=== PATIENT | female | born 1990 | race Caucasian/White ===

== ENCOUNTER 2017-08-10 14:11 | Emergency (ER) | payer BC ==
[2017-08-10 14:30] VITALS: BP 121/81
--- NOTE | 2017-08-10 14:55 | PHYS DOC ---
Past Medical History Past Medical History: No Pertinent History Past Surgical History: Other Additional Past Surgical Histo: Partial Pancreas Removal Alcohol Use: None Drug Use: None Adult General Chief Complaint Chief Complaint: EARACHE/EAR PAIN [facility] HPI Patient is a 26 year old female presents to the emergency department stating that she was seen at [facility] a week ago for right ear pain and was told everything look good. Patient states she was then referred to urgent care if she continued to have discomfort. Patient states she went to urgent care and was placed on amoxicllin for possible cellulitis. Patient states they had also mentioned to her that she may have shingles. However patient is having pain around the outer ear, and along the mastoid bone, she also has pain along the the right upper jaw. All of these areas are red and tender. No rash noted. Review of Systems Review of Systems Constitutional: Denies fever or chills [] Eyes: Denies change in visual acuity, redness, or eye pain [] HENT: Denies nasal congestion or sore throat. Pain to the right ear and right upper jaw line Respiratory: Denies cough or shortness of breath [] Cardiovascular: No additional information not addressed in HPI [] GI: Denies abdominal pain, nausea, vomiting, bloody stools or diarrhea [] : Denies dysuria or hematuria [] Musculoskeletal: Denies back pain or joint pain [] Integument: Denies rash or skin lesions [] Neurologic: Denies headache, focal weakness or sensory changes [] Endocrine: Denies polyuria or polydipsia [] Allergies Allergies Allergies Coded Allergies Type Severity Reaction Last Updated Verified No Known Drug Allergies 08/10/17 No Physical Exam Physical Exam Constitutional: Well developed, well nourished, no acute distress, non-toxic appearance. [] HENT: Normocephalic, atraumatic, bilateral external ears normal, oropharynx moist, no oral exudates, nose normal. Bilateral TM normal. Patient with outer ear appearing red, swollen, tender and warm. No drainage noted to the area. Patient with tenderness noted to the right upper jaw line. Patient without trismus. No anterior cervical adenopathy noted. No posterior neck tenderness noted. Eyes: PERRLA, EOMI, conjunctiva normal, no discharge. [] Neck: Normal range of motion, no tenderness, supple, no stridor. [] Cardiovascular:Heart rate regular rhythm, no murmur [] Lungs & Thorax: Bilateral breath sounds clear to auscultation [] Abdomen: Bowel sounds normal, soft, no tenderness, no masses, no pulsatile masses. [] Skin: Warm, dry, no erythema, no rash. [] Extremities: No tenderness, no cyanosis, no clubbing, ROM intact, no edema. [] Neurologic: Alert and oriented X 3, normal motor function, normal sensory function, no focal deficits noted. [] Psychologic: Affect normal, judgement normal, mood normal. [] Current Patient Data Vital Signs Vital Signs Date Time Temp Pulse Resp B/P (MAP) Pulse Ox O2 Delivery O2 Flow Rate FiO2 08/10/17 14:30 98.7 80 16 98 Room Air 98.7 EKG EKG [] Radiology/Procedures Radiology/Procedures [][facility] [address] [place] [address] IMAGING REPORT Signed PATIENT: LEÓN VALENTIN ACCOUNT: [id number] : 1990 LOCATION: ER AGE: 26 SEX: F EXAM STATUS: REG ER ORD. PHYSICIAN: SANDY TATUM APRN REASON: swelling of the outer rigth ear with redness along the mastoid area. PROCEDURE: CT MAXILLOFACIAL WO CONTRAST CT maxillofacial without contrast History: Right-sided ear and facial swelling Axial helical images of the face were obtained without contrast. Axial, sagittal and coronal reconstruction was performed. The nasal septum is mildly deviated to the right. The ostiomeatal complexes are narrow but patent. There are small polyps versus retention cysts in the left maxillary sinus.. The mastoid air cells are clear. The visualized osseous structures appear intact. The orbits appear normal. There is edema and swelling inferior to the right ear involving the right parotid. Impression: Inflammation involving the right parotid gland could be infectious or inflammatory. PQRS Compliance Statement: One or more of the following individualized dose reduction techniques were utilized for this examination: 1. Automated exposure control 2. Adjustment of the mA and/or kV according to patient size 3. Use of iterative reconstruction technique Electronically signed by: Angel Jose III, MD (08/10/2017 3:35 PM) [facility] [place] SIGNED BY: ANGEL JOSE III, MD DATE: 08/10/17 1518 CC: SANDY TATUM APRN; NO PCP; NON,STAFF ~ Course & Med Decision Making Course & Med Decision Making Pertinent Labs and Imaging studies reviewed. (See chart for details) CT scan identified parotitis. Patient will be recommended to stop taking the amoxicillin. Patient will be provided with clindamycin, norco for severe pain and zofran. Patient will be encouraged to use Ibuprofen for pain. Drink plenty of fluids. Followup with ENT on Saturday. Signs and symptoms to return to the emergency department has been provided. All questions and concerns have been answered at the patients bedside. Patient agrees with discharge instructions, treatment regimen and followup recommendations. [] Dragon Disclaimer Dragon Disclaimer This electronic medical record was generated, in whole or in part, using a voice recognition dictation system. Departure Departure Impression: Primary Impression: Parotitis, acute Disposition: HOME, SELF-CARE Condition: STABLE Referrals: NO PCP (PCP) Patient Instructions: Parotitis, [id number] Additional Instructions: Activity as tolerated Medication as prescribed [place] will cause drowsiness do not take if you need to alert and oriented. Drink plenty of fluids Followup with ENT on Saturday Return to the emergency department as needed for signs and symptoms that become worse. ENT: Dr Tse [phone] make sure you let the office know when you call that you are a patient from the [facility] You may also followup with [facility] or [facility] Scripts Hydrocodone/Apap 5-325 (NORCO 5-325 TABLET) 1 Each Tablet 1 TAB PO PRN Q6HRS Y for PAIN, #15 TAB 0 Refills Prov: SANDY TATUM APRN 08/10/17 Ondansetron (ZOFRAN ODT) 4 Mg Tab.rapdis 1 TAB SL Q8HRS, #10 TAB Prov: SANDY TATUM APRN 08/10/17 Clindamycin Hcl (CLINDAMYCIN HCL) 150 Mg Capsule 3 CAP PO TID for 10 Days, CAP Prov: SANDY TATUM APRN 08/10/17 SANDY TATUM APRN Aug 10, 2017 14:55
--- NOTE | 2017-08-10 15:39 | RAD ---
CT maxillofacial without contrast History: Right-sided ear and facial swelling Axial helical images of the face were obtained without contrast. Axial, sagittal and coronal reconstruction was performed. The nasal septum is mildly deviated to the right. The ostiomeatal complexes are narrow but patent. There are small polyps versus retention cysts in the left maxillary sinus.. The mastoid air cells are clear. The visualized osseous structures appear intact. The orbits appear normal. There is edema and swelling inferior to the right ear involving the right parotid. Impression: Inflammation involving the right parotid gland could be infectious or inflammatory. PQRS Compliance Statement: One or more of the following individualized dose reduction techniques were utilized for this examination: 1. Automated exposure control 2. Adjustment of the mA and/or kV according to patient size 3. Use of iterative reconstruction technique Electronically signed by: Angel Bonner III, MD (08/10/2017 3:35 PM) [facility] [place]
[2017-08-10] MEDS ORDERED: HYDR-971 PO (16:07)
[2017-08-10] MEDS ORDERED: CLIN150C14 PO (16:07)
[2017-08-10] MEDS ORDERED: ONDA4TAB10 SL (16:07)
[2017-08-10] MEDS ORDERED: ONDANSETRON ODT 4 MG TAB.RAPDIS. PO ONE (16:15)
[2017-08-10] MEDS ORDERED: CLINDAMYCIN HCL 150 MG CAPSULE. PO ONE (16:15)
== END 2017-08-10 16:19 | disposition home or self-care (01) ==
LOC: ER 14:11
DX: K11.21 Acute sialoadenitis (principal)
CPT/HCPCS: 70486; 99284; Q0162